=== PATIENT | female | born 1995 | race Two or more races ===

== ENCOUNTER → 2020-02-20 | Outpatient (CLI) | payer BC ==
[2020-02-20 11:13] LABS: THYROID STIMULATING HORMONE 5.68 uIU/ML (0.358-3.740)
[2020-02-20 11:14] LABS: PROLACTIN 15.8 NG/ML
[2020-02-20 11:15] LABS: THYROID PEROXIDASE ANTIBODY 29.8 U/ML (<60.0)
== END ==
LOC: M PLALAB 08:27
PROVIDERS: ATTEND Internal Medicine Endocrinology, Diabetes & Metabolism
DX: E22.1 Hyperprolactinemia (principal); E28.2 Polycystic ovarian syndrome; E04.0 Nontoxic diffuse goiter

== ENCOUNTER → 2020-05-11 | Outpatient (CLI) | payer BC ==
[2020-05-11 13:38] LABS: FREE T4 1.22 NG/DL (0.76-1.46); THYROID STIMULATING HORMONE 1.67 uIU/ML (0.358-3.740)
== END ==
LOC: M PLALAB 11:14
PROVIDERS: ATTEND Nurse Practitioner Family
DX: E03.9 Hypothyroidism, unspecified (principal)

== ENCOUNTER → 2020-08-09 | Outpatient (CLI) | payer BC ==
[2020-08-09 18:46] LABS: FREE T4 0.94 NG/DL (0.76-1.46); THYROID STIMULATING HORMONE 1.7 uIU/ML (0.358-3.740)
== END ==
LOC: M PLALAB 14:03
PROVIDERS: ATTEND Nurse Practitioner Family
DX: E03.9 Hypothyroidism, unspecified (principal)

== ENCOUNTER → 2020-09-29 | Outpatient (REF) | payer BC ==
[2020-09-29 16:28] LABS: FREE T4 1.3 NG/DL (0.76-1.46); THYROID STIMULATING HORMONE 0.24 uIU/ML (0.358-3.740)
== END ==
LOC: M PLALAB 14:49
PROVIDERS: ATTEND Internal Medicine Endocrinology, Diabetes & Metabolism
DX: E03.9 Hypothyroidism, unspecified (principal)

== ENCOUNTER → 2020-10-04 | Outpatient (REF) | payer BC ==
[2020-10-04 14:40] LABS: CHLAMYDIA DNA AMPLIFICATION NEGATIVE (NEGATIVE); GC DNA AMPLIFICATION NEGATIVE (NEGATIVE)
== END ==
LOC: M SFHCWAGY 12:47
PROVIDERS: ATTEND Advanced Practice Midwife
DX: O99.281 Endocrine, nutritional and metabolic diseases complicating pregnancy, first trimester (principal); Z3A.00 Weeks of gestation of pregnancy not specified

== ENCOUNTER → 2020-12-20 | Outpatient (CLI) | payer BC ==
[2020-12-20 11:22] LABS: FREE T4 0.92 NG/DL (0.76-1.46); THYROID STIMULATING HORMONE 2.17 uIU/ML (0.358-3.740)
== END ==
LOC: M PLALAB 09:28
PROVIDERS: ATTEND Nurse Practitioner Family
DX: E03.9 Hypothyroidism, unspecified (principal)